=== PATIENT | male | born 1960 | race Caucasian/White ===

== ENCOUNTER 2016-03-20 06:14 | Day surgery (SDC) | payer OTHER ==
[~2016-03-20] VITALS: Ht 170.2 cm; Wt 75.1 kg
[2016-03-20 07:31] VITALS: Ht 170.2 cm; Wt 75.1 kg
[2016-03-20] MEDS ORDERED: METF-731 PO (07:31)
[2016-03-20] MEDS ORDERED: HYDR12.58 PO (07:31)
[2016-03-20] MEDS ORDERED: SMV40T PO (07:31)
[2016-03-20] MEDS ORDERED: GLYB5TAB3 PO (07:31)
[2016-03-20] MEDS ORDERED: PIOG30TA26 PO (07:31)
[2016-03-20] MEDS ORDERED: BENA20TA48 PO (07:31)
[2016-03-20 08:00] VITALS: BP 123/73; PULSE 74; RESP 15
[2016-03-20] MEDS ORDERED: MIDAZOLAM 1 MG/ML 2 ML INJ ONE ×2 (08:23)
[2016-03-20] MEDS ORDERED: FENTAnyl 50 MCG/ML VIAL ONE (08:23)
[2016-03-20 08:45] VITALS: BP 101/67; PULSE 68; RESP 15
--- NOTE | 2016-03-20 10:46 | GILP ---
DATE OF PROCEDURE: 03/20/2016 NAME OF PROCEDURES: Colonoscopy and biopsy. SURGEON: Salas Gutierrez MD PREOPERATIVE DIAGNOSIS: Screening colonoscopy. POSTOPERATIVE DIAGNOSES: 1. Colonoscopy all the way to the cecum. 2. Small sigmoid colon polyp was removed. 3. Internal hemorrhoids. INDICATION FOR THE PROCEDURE: Mr. Yung Cancino is a 55-year-old male patient who was scheduled for screening colonoscopy. The procedure and possible complications are well explained to the patient. The patient understood and consented to the procedure. DESCRIPTION OF PROCEDURE: Under the influence of fentanyl and Versed, the colonoscope was carefully introduced in the rectum and under direct vision, it was advanced all the way to the cecum. FINDINGS: The patient had a small sigmoid colon polyp and it was removed using the biopsy forceps. He was noted to have internal hemorrhoids. He also had occasional diverticulosis of the colon. The patient tolerated the procedure very well and there was no complication from the procedure. At the end of the procedure, he was awake with stable vital signs and he was discharged home to the car e of his family. IMPRESSION: 1. Colonoscopy all the way to the cecum. 2. Small sigmoid colon polyp was removed using the biopsy forceps. 3. Occasional diverticulosis of the colon. 4. Internal hemorrhoids. PLAN: Next screening colonoscopy in 10 years. Dictated By: SALAS RODRIGUEZ/JERICA Conf#: [id number] DID#: [id number] CC: SALAS GUTIERREZ MD;*EndCC*
== END 2016-03-20 13:14 | disposition home or self-care (01) ==
LOC: GIL 06:14
PROVIDERS: ATTEND Internal Medicine Gastroenterology
DX: Z12.11 Encounter for screening for malignant neoplasm of colon (principal); D12.5 Benign neoplasm of sigmoid colon; K64.8 Other hemorrhoids; K57.90 Diverticulosis of intestine, part unspecified, without perforation or abscess without bleeding; I10 Essential (primary) hypertension; E11.9 Type 2 diabetes mellitus without complications
CPT/HCPCS: 45380; 82962; 88305; J2250; J3010